=== PATIENT | female | born 1980 | race Caucasian/White ===

== ENCOUNTER 2021-01-31 12:21 | Emergency (ER) | payer OTHER, SELFPAY ==
[2021-01-31 12:23] VITALS: BP 146/83; PULSE 93; RESP 16; TEMP 36.9; O2SAT 99; BMI 26.8
--- NOTE | 2021-01-31 13:05 | ED.RN ---
per dr olmos no need for a 1:1 sitter at the bedside. rn will continue to monitor.
[2021-01-31 13:10] LABS: Absolute Lymphocyte Count 2.61 X10^3/uL (0.83-4.51); Basophil# 0.03 X10^3/uL; Basophil% 0.3 % (0-1); Eosinophil# 0.04 X10^3/uL; Eosinophils% 0.4 % (0-5); Hematocrit 45.9 % (37-47); Hemoglobin 15.1 g/dL (12.0-15.0); Lymphocyte # 2.61 X10^3/ul (4.0); Lymphocyte % 28.3 % (19-41); Mean Corp Hgb Conc 32.9 g/dL (32-36); Mean Corpuscular Hgb 29.6 pg (27.0-32.0); Mean Platelet Vol. 8.8 fl (6.2-12.0); Monocyte# 0.51 X10^3/uL; Monocyte% 5.5 % (0-10); NRBC Flagged by Analyzer 0 % (0-5); Neutrophil # 6.01 X10^3/uL (2.7-7.7); Neutrophil % 65.3 % (47-70); Platelet Count 252 K/mm3 (150-450); RBC Distribution Width SD 39.6 fl (35.1-43.9); White Blood Count 9.2 K/mm3 (4.4-11.0)
[2021-01-31 13:21] LABS: Anion Gap 3 (5-15); BUN 7 mg/dL (7-18); BUN/Creat Ratio 8.6 RATIO (10-20); Calcium,Total 9.8 mg/dL (8.5-10.1); Chloride 107 mmol/L (98-107); Creatinine, Serum 0.81 mg/dL (0.55-1.02); EST Glomerular Filtration Rate 82 mL/min (>60); Est Glom Filt Rate - Afr Amer 99 mL/min (>60); Estimated Creatinine Clearance 71.56 ml/min; Glucose 101 mg/dL (74-106); Potassium 3.7 mmol/L (3.5-5.1); Sodium Level 137 mmol/L (136-145)
[2021-01-31 13:27] LABS: Internal QC Validated? YES +Cl - CLEAR BKGD; Pregnancy, Serum, hCG Quali. NEGATIVE Negative
[2021-01-31 13:33] VITALS: RESP 16
--- NOTE | 2021-01-31 13:41 | CM.ED ---
Social Work Consult: Suicidal Referral source: Dr. Bates Informant(s): Dr. Bates, patient, medical chart. Chief Complaint: Scared I might try to kill myself. Marital/Social History: to Love [place] for the pat 21 years. Patient has 5 children between the ages of 1 and 11. Living Situation: Lives with spouse and 5 children. Children are currently with other adult family members. Support/Resources: Connected with [facility] [employer] and report to be able to have financial assistance. History: None Education/Employment History: Denies any issues with comprehension or understanding. Mental Health Treatment/History: Depression and Depression (PPD). Patient recently started taking Wellbutrin a few days ago. Denies any history of inpatient psychiatric placement. History of counseling services and [facility] Triggers/Stressors: Recent PPD. Reports things were going well. Patient spouse reports that patient has been doing the best I have seen her in a long time. Coping Skills: Going on walks. Abuse Issue: Denies Substance Abuse hx: Denies any history of substance abuse/use. Risk to Self/others: Reports to have thoughts of gun, gun, gun. Patient denies plan to complete suicide and I don't think I would do it. Patient reports fear of what I might do. Patient denies any history of suicide attempts. Patient reports fleeting thoughts of harming others with not intent or plan. Patient denies self harming behaviors or history of. Patient denies any history of violent behavior. Mental Status Exam: A&Ox3 Appearance/General Behavior: Clean. Calm. Directable. Mood/Affect: Depressed. Communication Pattern: Responds to questions. Thought Process: Denies V/A hallucinations. Reports some paranoia of what I might do. Judgement: Fair Assessment: Met with patient and patient spouse, Love in room. Introduced self and director social welfare role. Patient agreeable to speak with this director social welfare. Patient provided verbal permission for this director social welfare to speak openly with Love present. Love engaged in conversation as well and allowing patient to speak for self. Love and patient appear to have a healthy relationship. Love appears to have good insight into patient current mental health struggles/challenges. Patient reports to have been doing well but recently to not be sleeping and things are getting bad again. Patient states often throughout assessment to have fear of what I might do. Patient is seeking hospitalization for stabilization. Patient reports to have spoken with [facility] this morning and was directed to come to the hospital to medical clearance prior to going to [facility] in [place]. Love provided this director social welfare with address of [address] [place] [address] as address for [facility]. Collaborating with Dr. Bates. Recommending inpatient psychiatric placement. Telephone call to [facility], . Voicemail left requesting return phone call. Will continue to follow. Jony Pickett MSW, BRUCE
[2021-01-31] MEDS: LORazepam 1 MG Tablet PO (14:01)
[2021-01-31 14:03] LABS: Amphetamine Urine VISTA NEGATIVE (<1000 ng/mL); Barbiturate Urine VISTA NEGATIVE (< 200 ng/mL); Benzodiazepine Urine VISTA NEGATIVE (< 200 ng/mL); Cocaine Urine VISTA NEGATIVE (< 300 ng/mL); Ecstacy Urine VISTA NEGATIVE (< 500 ng/mL); Methadone Urine VISTA NEGATIVE (< 300 ng/mL); PCP Urine VISTA NEGATIVE (< 25 ng/mL); THC Urine VISTA NEGATIVE (< 50 ng/mL); Vista UDS pH Range 7
--- NOTE | 2021-01-31 14:50 | CM.ED ---
Social Work Telephone call to Juliana Durant. Juliana reports to not currently have any openings and to have thought to have communicated this to patient and patient spouse earlier today with recommendation for patient to come to the ED and transition to a local psychiatric facility. This social services coordinator collaborating with patient and patient spouse on above. Patient requesting for this social services coordinator to contact [facility] in [place]. Telephone call to Gavin Quintanilla. Currently no openings. Will continue to follow. Jony VALVERDE, BRUCE
--- NOTE | 2021-01-31 15:21 | CM.ED ---
Social Work Collaborating with patient and patient spouse in room. This transition social worker to make referral to [facility]. Telephone call to [facility], voicemail left for admissions to call this transition social worker back. Will continue to follow. Jony VALVERDE, BRUCE
--- NOTE | 2021-01-31 15:25 | EKG12_ITS ---
Test Reason : MENTAL HEALTH Blood Pressure : / mmHG Vent. Rate : 069 BPM Atrial Rate : 069 BPM P-R Int : 120 ms QRS Dur : 080 ms QT Int : 384 ms P-R-T Axes : 036 071 064 degrees QTc Int : 411 ms Normal sinus rhythm Normal ECG Confirmed by SONG LAMBERT, VON ([id number]), editorial clerk JOSE ENRIQUE LEVY ([id number]) on 02/02/2021 2:39:50 PM Referred By: ESTELA Confirmed By:LING ZULETA MD
--- NOTE | 2021-01-31 15:29 | NURSING ---
NO OLD EKGS
[2021-01-31 15:42] VITALS: BP 122/78; PULSE 87; RESP 16; O2SAT 100
--- NOTE | 2021-01-31 15:57 | ED.VIS.PSYCH ---
History of Present Illness Informant: Patient Onset: - - Acute on chronic Associated Symptoms: Depressed, Change in Eating, Change in sleeping, Decreased Interest, Suicidal Thoughts Narrative: Patient presents with secondary to increasing depression and suicidal ideation. Patient states she has had longstanding depression. The Effexor that she had previously been on was no longer working. Her doctor had tried her on several different medications. Patient states she recently tried to taper herself off of her medication because she was on so many but had worsening symptoms. She has been back on Wellbutrin for the past week or more. Patient states today she had suicidal ideation with thoughts of grabbing a gun and shooting herself. These thoughts scared her enough that she went and found her and told him what was going on. Patient is requesting inpatient treatment for her current condition. Patient recently finished an intensive outpatient therapy program. She is never required inpatient stabilization. <Uyen Bates - Last Filed: 01/31/21 16:03> <Griffin Carter - Last Filed: 01/31/21 18:03> Chief Complaint: Mental Health - Past Medical History (1) Depression Status: Chronic <Uyen Bates - Last Filed: 01/31/21 16:03> Past Medical History Lives: With Family Smoking Status: Never smoker <Uyen Bates - Last Filed: 01/31/21 16:03> <Griffin Carter - Last Filed: 01/31/21 18:03> - Allergies and Home Meds Allergies/Adverse Reactions: Allergies No Known Allergies Allergy (Verified 01/31/21 12:30) Primary Care Physician: True Curry DO [Primary Care Provider] - Review of Systems General: Denies: Chills, Fever Eyes: Denies: Visual changes - bilaterally ENT: Denies: Bilateral ear pain Cardiovascular: Denies: Chest pain Respiratory: Denies: Dyspnea, Cough Gastrointestinal: Denies: Abdominal pain, Vomiting, Diarrhea Musculoskeletal: Denies: Swelling, Extremity Pain Skin: Denies: Rash Neurological: Denies: Headache Psych: Reports: Depression, Suicidal thoughts Hematologic: Denies: Easy bruising, Easy bleeding Allergy: Denies: Uticaria <Uyen Bates - Last Filed: 01/31/21 16:03> Physical Exam Vital Signs/Narrative: Vital Signs Temp Pulse Resp BP Pulse Ox 01/31/21 15:42 87 16 122/78 H 100 01/31/21 13:33 16 01/31/21 12:23 98.4 F 93 16 146/83 H 99 Inital Vital Signs reviewed: Yes General: Well nourished, Well developed Head: Normocephalic Neck: Supple Cardiovascular: Regular rate, Regular rhythm Respiratory: No distress, CTA bilaterally Abdomen: Soft, Nontender Back: Nontender Extremities: Nontender Skin: Normal color Neurological: Alert, Oriented x3, Normal Strength, Normal Sensation Psych: Normal Speech Pattern, Depressed, Suicidal thoughts <Uyen Bates - Last Filed: 01/31/21 16:03> Vital Signs/Narrative: Vital Signs Pulse Resp BP Pulse Ox 01/31/21 17:36 16 01/31/21 15:42 87 16 122/78 H 100 <Griffin Carter - Last Filed: 01/31/21 18:03> Diagnostic/Tx/Re-eval 01/31/21 13:00 Mucosa - Nose SARS-CoV-2 Antigen (Rapid) - Final Laboratory Results 01/31/21 01/31/21 01/31/21 12:50 12:50 12:50 WBC 9.2 RBC 5.10 Hgb 15.1 H Hct 45.9 MCV 90.0 MCH 29.6 MCHC 32.9 RDW Std Deviation 39.6 RDW Coeff of Merry 12.0 Plt Count 252 MPV 8.8 Immature Gran % (Auto) 0.200 Neut % (Auto) 65.3 Lymph % (Auto) 28.3 [facility] % (Auto) 5.5 Eos % (Auto) 0.4 Baso % (Auto) 0.3 Absolute Neuts (auto) 6.0 Absolute Lymphs (auto) 2.61 Nucleated RBC % 0 Sodium 137 Potassium 3.7 Chloride 107 Carbon Dioxide 27.0 Anion Gap 3 L BUN 7 Creatinine 0.81 Estim Creat Clear Calc 71.56 Est GFR (MDRD) Af Amer 99 Est GFR (MDRD) Non-Af 82 BUN/Creatinine Ratio 8.6 L Glucose 101 Calcium 9.8 Serum , Qual Urine Opiates Screen Urine Methadone Screen Ur Barbiturates Screen Ur Phencyclidine Scrn Ur Amphetamines Screen U Methamphetamin-MDMA U Benzodiazepines Scrn Urine Cocaine Screen U Cannabinoids Screen Ur Drug Screen Comment Ethyl Alcohol 5.0 04/07/21 04/07/21 12:50 13:40 WBC RBC Hgb Hct MCV MCH MCHC RDW Std Deviation RDW Coeff of Merry Plt Count MPV Immature Gran % (Auto) Neut % (Auto) Lymph % (Auto) [facility] % (Auto) Eos % (Auto) Baso % (Auto) Absolute Neuts (auto) Absolute Lymphs (auto) Nucleated RBC % Sodium Potassium Chloride Carbon Dioxide Anion Gap BUN Creatinine Estim Creat Clear Calc Est GFR (MDRD) Af Amer Est GFR (MDRD) Non-Af BUN/Creatinine Ratio Glucose Calcium Serum , Qual NEGATIVE Urine Opiates Screen NEGATIVE Urine Methadone Screen NEGATIVE Ur Barbiturates Screen NEGATIVE Ur Phencyclidine Scrn NEGATIVE Ur Amphetamines Screen NEGATIVE U Methamphetamin-MDMA NEGATIVE U Benzodiazepines Scrn NEGATIVE Urine Cocaine Screen NEGATIVE U Cannabinoids Screen NEGATIVE Ur Drug Screen Comment Ethyl Alcohol - EKG Initial EKG Interpretation: Sinus Rhythm - Sinus at 69 with no acute ischemia. Restraints applied: No Patient cooperative throughout her ED stay. She is requesting inpatient treatment. They had found a facility in [place] that handles on most patients but unfortunate they do not have beds. Referral has been made to [facility] and we are waiting to hear acceptance there. Patient has been working with social media marketing analyst in the emergency room. Patient was given 1 tab of p.o. Ativan to help with anxiety. At this time patient be signed out to oncoming physician pending final placement. <Uyen Bates - Last Filed: 01/31/21 16:03> Patient signed out to me due to end of shift. Currently just awaiting placement. Patient was accepted at [facility] and she will be transported at this time. No acute issues under my care. <Griffin Carter - Last Filed: 01/31/21 18:03> Disposition: Transfer [facility]red [facility] <Uyen Bates - Last Filed: 01/31/21 16:03> ED Disposition <Uyen Bates - Last Filed: 01/31/21 16:03> <Griffin Carter - Last Filed: 01/31/21 18:03> - Plan for ED Patient: Disposition: Psychiatric Hospital or Unit Diagnosis: Depression, Suicidal ideation Referrals: True Curry DO [Primary Care Provider] -
--- NOTE | 2021-01-31 16:07 | CM.ED ---
Social Work Telephone call to Estella Cohen to return Alexa medrano. Referral provided. Alexa to call this hospital social worker back in regards to being able to accept due to private pay nature of case. Patient and patient spouse are aware of private pay and have support from the [employer]. Will continue to follow. Jony VALVERDE, BRUCE
[2021-01-31 16:14] LABS: AST(SGOT) 11 U/L (15-37); Alanine Aminotransfer ALT/SGPT 24 U/L (13-56); Albumin, Serum 4.2 g/dL (3.2-5.0); Alkaline Phosphatase 65 U/L (45-117); Bilirubin, Direct 0.17 mg/dL (0.00-0.30); Globulin 3.7 g/dL (2.2-4.2); Protein, Total 7.9 g/dL (6.4-8.2)
--- NOTE | 2021-01-31 16:54 | CM.ED ---
Social Work Telephone call received from Alexa Lam. Alexa going over private pay information with this social media job titles. Patient would need to pay 2 days upfront ($2,500). Patient and patient spouse are agreeable to this rate and amount. Clinical information faxed. Pending review and approval currently. Will continue to follow. Jony VALVERDE, BRUCE
[2021-01-31 17:36] VITALS: RESP 16
--- NOTE | 2021-01-31 18:10 | NURSING ---
CALLED [facility], ETA IS 20 TO 30 MIN
[2021-01-31 18:27] VITALS: BP 113/71; PULSE 84; RESP 16; O2SAT 98
--- NOTE | 2021-01-31 18:27 | CM.ED ---
Social Work Telephone call from Alexa Lam. Patient has been accepted by Dr. Fernandes to the adult unit. Nurse to call report to [phone]. Nursing staff, patient and patient spouses updated. PLAN: Estella Cohen. Jony VALVERDE, BRUCE
== END 2021-01-31 19:09 ==
PROVIDERS: Emergency Provider Emergency Medicine; PCP Family Medicine
DX: F32.9 Major depressive disorder, single episode, unspecified (principal); R45.851 Suicidal ideations
CPT/HCPCS: 80048; 80076; 80307; 82077; 84703; 85025; 87426; 93005; 99281; 99285

== ENCOUNTER 2022-02-09 16:58 | Emergency (ER) | payer OTHER, SELFPAY ==
[2022-02-09 16:59] VITALS: BP 151/91; PULSE 89; RESP 19; TEMP 36.2; O2SAT 99; BMI 28.9
--- NOTE | 2022-02-09 17:07 | EKG12_ITS ---
Test Reason : CP Blood Pressure : / mmHG Vent. Rate : 100 BPM Atrial Rate : 100 BPM P-R Int : 122 ms QRS Dur : 082 ms QT Int : 364 ms P-R-T Axes : 061 070 034 degrees QTc Int : 469 ms Normal sinus rhythm Nonspecific ST abnormality Abnormal ECG Confirmed by HUSEYIN LAMBERT, KRYSTYNA ([id number]), food expeditor VARGHESE LEONARD ([id number]) on 02/11/2022 12:54:30 PM Referred By: Confirmed By:KRYSTYNA FONTANEZ MD
--- NOTE | 2022-02-09 17:07 | RAD_ITS ---
EXAM: XR CHEST, 1 VIEW CLINICAL INDICATION: chest pain TECHNIQUE: Frontal view of the chest. This report was created using [employer] report generation technology. COMPARISON: None. FINDINGS: LUNGS AND PLEURAL SPACES: Unremarkable. No consolidation or edema. No pneumothorax. No effusion. HEART: Unremarkable. Cardiac silhouette not enlarged. MEDIASTINUM: Central airways and mediastinal contour are unremarkable. BONES/JOINTS: Unremarkable. SOFT TISSUES: Unremarkable. RAD/Chest 1 View (Portable) IMPRESSION: No radiographic evidence of acute cardiopulmonary disease. Electronically Signed: Lucio Shoemaker MD at 17:47 EDT ,
[2022-02-09 17:09] VITALS: O2SAT 98
--- NOTE | 2022-02-09 17:13 | EDS_ITS ---
HPI History of Present Illness Chief Complaint: Chest Pain Narrative Narrative: 40-year-old female presenting for chest pain for 3 days. She does not describe it as sharp or aching and does not describe it as pressure. There is no radiation of the pain. It is all over her chest. Nausea without vomiting. No cardiac history. No history of DVT/PE and no risk factors. Denies trauma. No fever, chills, cough. Patient does report that she has lightheadedness PFSH PFSH Medical History tubal ligation planned Home Medications B complex-minerals 1 each PO DAILY 01/31/21 [History Last Taken Unknown] bupropion HCl 150 mg PO DAILY 01/31/21 [History Last Taken Unknown] cholecalciferol (vitamin D3) 0 unit PO DAILY 01/31/21 [History Last Taken Unknown] Allergy/AdvReac Type Severity Reaction Status Date / Time No Known Allergies Allergy Verified 01/31/21 12:30 Social History Smoking Status: Never smoker ROS ROS ED Constitutional Constitutional ED: Denies chills or fever(s) Eyes Eyes: Denies blurry vision or change in vision ENT ENT ED: Denies rhinorrhea Cardiovascular Cardiovascular: Reports as per HPI Respiratory/Chest Respiratory/Chest: Denies cough or dyspnea Gastrointestinal Gastrointestinal: Reports nausea; Denies abdominal pain or vomiting Genitourinary Genitourinary ED: Denies dysuria or hematuria Musculoskeletal Musculoskeletal: Denies arthralgias or myalgias Integumentary Denies rash Neurologic Neurologic: Denies headache(s) Psychiatric Psychiatric: Denies anxiety or depression EXAM Physical Exam Const Vital Signs: 02/09/22 16:59 02/09/22 17:09 02/09/22 18:05 Temperature 97.1 F L Temperature Source Temporal Pulse Rate 89 89 Pulse Rate [Lying] Pulse Rate [Sitting (for 1 minute prior to obtaining)] Pulse Rate [Standing (for 1 minute prior to obtaining)] Respiratory Rate 19 H 16 Respiratory Effort Normal Blood Pressure 151/91 H 117/79 Blood Pressure [Lying] Blood Pressure [Sitting (for 1 minute prior to obtaining)] Blood Pressure [Standing (for 1 minute prior to obtaining)] Blood Pressure Mean 111 91 Blood Pressure Mean [Lying] Blood Pressure Mean [Sitting (for 1 minute prior to obtaining)] Blood Pressure Mean [Standing (for 1 minute prior to obtaining)] Pulse Ox 99 98 98 Oxygen Delivery Method Room Air Room Air Room Air 02/09/22 18:06 02/09/22 19:00 Temperature 98.4 F Temperature Source Temporal Pulse Rate 64 Pulse Rate [Lying] 81 Pulse Rate [Sitting (for 1 minute prior to obtaining)] 94 Pulse Rate [Standing (for 1 minute prior to obtaining)] 89 Respiratory Rate 14 Respiratory Effort Blood Pressure 124/78 H Blood Pressure [Lying] 117/79 Blood Pressure [Sitting (for 1 minute prior to obtaining)] 126/86 H Blood Pressure [Standing (for 1 minute prior to obtaining)] 110/86 H Blood Pressure Mean 93 Blood Pressure Mean [Lying] 91 Blood Pressure Mean [Sitting (for 1 minute prior to obtaining)] 99 Blood Pressure Mean [Standing (for 1 minute prior to obtaining)] 94 Pulse Ox 98 Oxygen Delivery Method Room Air Positive well nourished General Appearance ED: NAD; Negative for pallor HEENT Reports normocephalic, head/scalp atraumatic and moist mucous membranes Eyes PERRL and EOMs intact bilaterally Neck no lymphadenopathy and supple Chest Wall inspection of chest normal and palpation of chest normal Resp normal respiratory effort and clear to auscultation bilaterally Auscultation: Negative for rales, rhonchi or wheezes Cardio regular rate and regular rhythm GI normal to inspection, nondistended, normoactive bowel sounds and non-distended Auscultation: normoactive bowel sounds Palpation: soft Narrative: Deferred Extremity normal to inspection Neuro oriented x3 and CN's II-XII intact bilaterally Sensorium / Orientation: alert Motor Exam: strength 5/5 throughout Psych mental status grossly normal Attitude: No agitated Skin no rashes or lesions noted and no wounds General Skin Exam: Negative for jaundice or pallor Heart Score History: Slightly/Non-Suspicious ECG: Normal Age: </= 45 years Risk Factors: No Risk Factors Troponin: </= Normal Limit Score: 0 MDM MDM MDM Narrative Medical decision making narrative: Patient presenting with vague symptoms of palpitations and chest pain. These last only for a minute or so. She relates some lightheadedness as well. This is nonvertiginous in nature. I obtained an EKG and on my interpretation is a normal sinus rhythm with a ventricular rate of 100 bpm without sign of ischemic change. Chest x-ray on my interpretation shows no acute cardiopulmonary process and the radiologist agree. CBC and BMP are unremarkable. High-sensitivity troponin is less than 3 and delta troponin is also less than 3. Patient is not tachycardic, tachypneic, hypoxic or having sharp pleuritic pain. Low clinical suspicion for PE. Orthostatic vital signs were normal. At this point with a negative work-up and feel the patient safe to be discharged home. She was counseled to follow-up with her primary care physician to ensure resolution. Patient given return precautions. Impression: 1. Lightheadedness 2. Palpitations 3. Chest pain noncardiac Lab Data Attestation: I reviewed the patient's lab results. Labs: Laboratory Results - last 24 hr 02/09/22 02/09/22 02/09/22 17:15 17:15 17:15 WBC 10.5 RBC 4.59 Hgb 13.6 Hct 40.4 MCV 88.0 MCH 29.6 MCHC 33.7 RDW Std Deviation 38.2 RDW Coeff of Merry 11.9 Plt Count 243 MPV 8.6 Immature Gran % (Auto) 0.400 Neut % (Auto) 69.2 Lymph % (Auto) 24.4 [facility] [facility] % (Auto) 4.9 Eos % (Auto) 0.9 Baso % (Auto) 0.2 Absolute Neuts (auto) 7.3 Absolute Lymphs (auto) 2.56 Nucleated RBC % 0 Sodium 138 Potassium 3.5 Chloride 107 Carbon Dioxide 25.0 Anion Gap 6 BUN 18 Creatinine 1.06 H Estim Creat Clear Calc 54.12 Est GFR (MDRD) Af Amer 73 Est GFR (MDRD) Non-Af 60 BUN/Creatinine Ratio 17.0 Glucose 125 H Calcium 9.1 Troponin I High Sens < 3 L 02/09/22 19:15 WBC RBC Hgb Hct MCV MCH MCHC RDW Std Deviation RDW Coeff of Merry Plt Count MPV Immature Gran % (Auto) Neut % (Auto) Lymph % (Auto) [facility] % (Auto) Eos % (Auto) Baso % (Auto) Absolute Neuts (auto) Absolute Lymphs (auto) Nucleated RBC % Sodium Potassium Chloride Carbon Dioxide Anion Gap BUN Creatinine Estim Creat Clear Calc Est GFR (MDRD) Af Amer Est GFR (MDRD) Non-Af BUN/Creatinine Ratio Glucose Calcium Troponin I High Sens < 3 L Radiography Diagnostic Testing: Clinical Impression(s) from Imaging Studies Chest X-Ray 02/09/22 17:07 IMPRESSION: No radiographic evidence of acute cardiopulmonary disease. Electronically Signed: Lucio Shoemaker MD at 17:47 EDT , Discharge Plan Triage Chief Complaint: Chest Pain ED Provider: Dereje Dillon Dx/Rx/DC Orders Instructions: ED Chest Pain, Uncertain Cause, ED Palpitations Prescriptions: No Action bupropion HCl 150 MG tablet sustained-release 12 hr 150 mg PO DAILY RF: 0 B complex-minerals 1 EACH tablet 1 each PO DAILY RF: 0 cholecalciferol (vitamin D3) 2,000 UNIT capsule 0 unit PO DAILY RF: 0 Primary Care Provider: True Curry Referrals: True Curry, [Primary Care Provider] - Disposition Disposition: Home, Self Care
[2022-02-09 17:23] LABS: Absolute Lymphocyte Count 2.56 X10^3/uL (0.83-4.51); Absolute Neutrophil Count 7.3 X10^3/uL (2.0-7.7); Basophil# 0.02 X10^3/uL; Basophil% 0.2 % (0-1); Eosinophil# 0.09 X10^3/uL; Eosinophils% 0.9 % (0-5); Hematocrit 40.4 % (37-47); Hemoglobin 13.6 g/dL (12.0-15.0); Lymphocyte # 2.56 X10^3/ul (0.83-4.51); Lymphocyte % 24.4 % (19-41); Mean Corp Hgb Conc 33.7 g/dL (32-36); Mean Corpuscular Hgb 29.6 pg (27.0-32.0); Mean Platelet Vol. 8.6 fl (6.2-12.0); Monocyte# 0.52 X10^3/uL; Monocyte% 4.9 % (0-10); NRBC Flagged by Analyzer 0 % (0-5); Neutrophil # 7.28 X10^3/uL (2.7-7.7); Neutrophil % 69.2 % (47-70); Platelet Count 243 K/mm3 (150-450); RBC Distribution Width CV 11.9 % (11.6-14.6); RBC Distribution Width SD 38.2 fl (35.1-43.9); Red Blood Count 4.59 M/mm3 (4.2-5.4); White Blood Count 10.5 K/mm3 (4.4-11.0)
[2022-02-09 17:35] LABS: Anion Gap 6 (5-15); BUN 18 mg/dL (7-18); Calcium,Total 9.1 mg/dL (8.5-10.1); Chloride 107 mmol/L (98-107); Creatinine, Serum 1.06 mg/dL (0.55-1.02); EST Glomerular Filtration Rate 60 mL/min (>60); Est Glom Filt Rate - Afr Amer 73 mL/min (>60); Estimated Creatinine Clearance 54.12 ml/min; Glucose 125 mg/dL (74-106); Potassium 3.5 mmol/L (3.5-5.1); Sodium Level 138 mmol/L (136-145)
[2022-02-09 18:05] VITALS: BP 117/79; PULSE 89; RESP 16; O2SAT 98
[2022-02-09 18:06] VITALS: BP 110/86; BP 117/79; BP 126/86; PULSE 81; PULSE 89; PULSE 94
[2022-02-09 18:15] LABS: Troponin-I HS < 3 pg/mL (3.0-54.0)
[2022-02-09 19:00] VITALS: BP 124/78; PULSE 64; RESP 14; TEMP 36.9; O2SAT 98
[2022-02-09 19:49] LABS: Troponin-I HS < 3 pg/mL (3.0-54.0)
[2022-02-09 20:34] VITALS: BP 125/78; PULSE 88; RESP 18; TEMP 36.9; O2SAT 99
== END 2022-02-09 20:55 | disposition home or self-care (01) ==
PROVIDERS: Emergency Provider Student in an Organized Health Care Education/Training Program; PCP Family Medicine; Visit Provider Student in an Organized Health Care Education/Training Program
DX: R42 Dizziness and giddiness (principal); R00.2 Palpitations; R07.89 Other chest pain
CPT/HCPCS: 71045; 80048; 84484; 85025; 93005; 99285; A4216